=== PATIENT | male | born 1980 | race Hispanic/Latino ===

== ENCOUNTER 2017-07-03 15:06 | Emergency (ER) | payer SELFPAY ==
[~2017-07-03] VITALS: Ht 175.3 cm; Wt 95.3 kg
[2017-07-03 15:59] LABS: BASOPHILS % 0.5 % (0.0-1.0); EOSINOPHILS # (AUTO) 0.1 (0.0-0.4); EOSINOPHILS % 1.7 % (0.0-6.0); HEMATOCRIT 40.9 % (38.2-49.6); HEMOGLOBIN 14.3 g/dL (14.0-18.0); LYMPHOCYTES % 39.2 % (18.0-39.1); MEAN CORPUSCULAR HEMOGLOBIN 29.4 pg (28-32); MEAN CORPUSCULAR VOLUME 84.2 fL (81-99); MONOCYTES # (AUTO) 0.4 (0.2-0.8); MONOCYTES % 4.9 % (4.4-11.3); NEUTROPHILS # (AUTO) 4.1 (2.1-6.9); NEUTROPHILS % 53.1 % (38.7-80.0); PLATELET COUNT 212 x10e3/uL (140-360); RED BLOOD COUNT 4.86 x10e6/uL (4.3-5.7); RED CELL DISTRIBUTION WIDTH 12.8 % (11.7-14.4)
[2017-07-03 16:04] LABS: INR 0.91; PARTIAL THROMBOPLASTIN TIME 28.6 seconds (23.8-35.5); PROTHROMBIN TIME 12.7 seconds (11.9-14.5)
[2017-07-03 16:11] LABS: ALANINE AMINOTRANSFERASE 44 IU/L (0-55); ALBUMIN 3.9 g/dL (3.5-5.0); ALBUMIN/GLOBULIN RATIO 1.1 (0.8-2.0); ALKALINE PHOSPHATASE 95 IU/L (40-150); ANION GAP 15.6 mmol/L (8-16); BLOOD UREA NITROGEN 12 mg/dL (7-26); BUN/CREATININE RATIO 14 (6-25); CALCIUM 9.1 mg/dL (8.4-10.2); CARBON DIOXIDE 24 mmol/L (22-29); CHLORIDE 104 mmol/L (98-107); CREATINE KINASE 203 IU/L (30-200); CREATININE, SERUM 0.84 mg/dL (0.72-1.25); EST GLOMERULAR FILTRATION RATE > 60 ML/MIN (60-); GLUCOSE 152 mg/dL (74-118); POTASSIUM 3.6 mmol/L (3.5-5.1); SODIUM 140 mmol/L (136-145)
[2017-07-03 16:17] LABS: TROPONIN I < 0.001 ng/mL (0-0.300)
--- NOTE | 2017-07-03 16:47 | Diagnostic Imaging Report ---
PROCEDURE: CHEST SINGLE (PORTABLE) COMPARISON: None. INDICATIONS: chest pain x 3 days FINDINGS: Portable frontal image obtained at 1419 hrs. LUNGS: No evidence of mass or infiltrate. Pulmonary vascular markings are normal PLEURA: No effusions or pneumothorax. HEART \T\ MEDIASTINUM: The cardiomediastinal silhouette is normal. No hilar lymphadenopathy. BONES \T\ SOFT TISSUES: No focal osseous lesions. Soft tissues are unremarkable. CONCLUSION: No acute cardiopulmonary process. Dictated by: Anselmo Blount M.D. on 07/03/2017 at 16:56 Electronically approved by: Anselmo Blount M.D. on 07/03/2017 at 16:56
== END 2017-07-03 18:00 | disposition home or self-care (01) ==
LOC: ER 15:06
DX: R07.89 Other chest pain (principal); I10 Essential (primary) hypertension
CPT/HCPCS: 36415; 71010; 80053; 82550; 82553; 83880; 84484; 85025; 85610; 85730; 93005; 99283

== ENCOUNTER 2017-10-31 08:11 | Emergency (ER) | payer SELFPAY ==
[~2017-10-31] VITALS: Ht 175.3 cm; Wt 95.3 kg
[2017-10-31] MEDS ORDERED: INHALER (08:23)
[2017-10-31] MEDS ORDERED: LISINOPRIL10 MG PO (08:23)
[2017-10-31] MEDS ORDERED: PENICILLIN G BENZATHINE LA 1.2 MU TBX IM STA (08:28)
[2017-10-31] MEDS ORDERED: ACETAMINOPHEN 325 MG TAB PO ONE (08:30)
== END 2017-10-31 09:15 | disposition home or self-care (01) ==
LOC: ER 08:11
DX: R50.9 Fever, unspecified (principal); J02.0 Streptococcal pharyngitis
CPT/HCPCS: 96372; 99283; J0561

== ENCOUNTER 2018-01-16 22:15 | Emergency (ER) | payer SELFPAY ==
[~2018-01-16] VITALS: Ht 175.3 cm; Wt 95.3 kg
[~2018-01-16 22:15] MED LIST: INHALER; LISINOPRIL10 MG PO
[2018-01-16] MEDS ORDERED: SODIUM CHLORIDE 0.9% 1000ML 1,000 ML IV STA (22:24)
[2018-01-16 22:41] LABS: BASOPHILS # (AUTO) 0.1 (0.0-0.1); BASOPHILS % 0.5 % (0.0-1.0); EOSINOPHILS # (AUTO) 0.2 (0.0-0.4); EOSINOPHILS % 1.5 % (0.0-6.0); HEMATOCRIT 38.4 % (38.2-49.6); HEMOGLOBIN 13.6 g/dL (14.0-18.0); LYMPHOCYTES # (AUTO) 3.5 (1.0-3.2); LYMPHOCYTES % 33.3 % (18.0-39.1); MEAN CORPUSCULAR HEMOGLOBIN 29.8 pg (28-32); MEAN CORPUSCULAR HGB CONC 35.4 g/dL (31-35); MEAN CORPUSCULAR VOLUME 84.2 fL (81-99); MONOCYTES # (AUTO) 0.8 (0.2-0.8); MONOCYTES % 7.6 % (4.4-11.3); NEUTROPHILS % 56.8 % (38.7-80.0); PLATELET COUNT 217 x10e3/uL (140-360); RED BLOOD COUNT 4.56 x10e6/uL (4.3-5.7)
[2018-01-16 22:50] LABS: INR 0.98; PARTIAL THROMBOPLASTIN TIME 30.5 seconds (23.8-35.5); PROTHROMBIN TIME 12.2 seconds (11.9-14.5)
[2018-01-16 23:00] LABS: ALANINE AMINOTRANSFERASE 32 IU/L (0-55); ALBUMIN 3.9 g/dL (3.5-5.0); ALBUMIN/GLOBULIN RATIO 1.1 (0.8-2.0); ALKALINE PHOSPHATASE 122 IU/L (40-150); ANION GAP 14.6 mmol/L (8-16); BLOOD UREA NITROGEN 20 mg/dL (7-26); BUN/CREATININE RATIO 24 (6-25); CALCIUM 9.2 mg/dL (8.4-10.2); CARBON DIOXIDE 22 mmol/L (22-29); CHLORIDE 104 mmol/L (98-107); CREATININE, SERUM 0.84 mg/dL (0.72-1.25); EST GLOMERULAR FILTRATION RATE > 60 ML/MIN (60-); GLUCOSE 147 mg/dL (74-118); POTASSIUM 3.6 mmol/L (3.5-5.1); SODIUM 137 mmol/L (136-145)
[2018-01-16 23:07] LABS: CREATINE KINASE MB 1.6 ng/mL (0-5.0)
== END 2018-01-16 23:57 | disposition home or self-care (01) ==
LOC: ER 22:15
DX: M25.562 Pain in left knee (principal); L03.116 Cellulitis of left lower limb; R22.1 Localized swelling, mass and lump, neck
CPT/HCPCS: 36415; 80053; 82550; 82553; 83735; 84484; 85025; 85610; 85730; 93005; 93971; 99283; J7030

== ENCOUNTER 2018-03-30 17:54 | Emergency (ER) | payer SELFPAY | END 2018-03-30 18:09 | disposition short-term general hospital (02) | LOC: ER 17:54 | DX: R51 Headache (principal) ==

== ENCOUNTER 2018-04-02 13:03 | Emergency (ER) | payer SELFPAY ==
[~2018-04-02] VITALS: Ht 175.3 cm; Wt 95.3 kg
[2018-04-02 13:23] VITALS: BP 144/90
== END 2018-04-02 13:40 | disposition home or self-care (01) ==
LOC: ER 13:03
DX: R51 Headache (principal); J01.00 Acute maxillary sinusitis, unspecified; J01.30 Acute sphenoidal sinusitis, unspecified
CPT/HCPCS: 99282

== ENCOUNTER 2018-04-11 06:35 | Emergency (ER) | payer SELFPAY ==
[~2018-04-11] VITALS: Ht 175.3 cm; Wt 95.3 kg
== END 2018-04-11 07:14 | disposition short-term general hospital (02) ==
LOC: ER 06:35
DX: R30.0 Dysuria (principal)

== ENCOUNTER 2019-01-05 10:45 | Emergency (ER) | payer SELFPAY ==
[~2019-01-05] VITALS: Ht 175.3 cm; Wt 95.3 kg
--- NOTE | 2019-01-05 12:17 | Diagnostic Imaging Report ---
EXAMINATION: CXR 2 VIEW - HOPD INDICATION: Chest pain COMPARISON: None FINDINGS: TUBES and LINES: None. LUNGS: The lung volumes are normal. No focal consolidation or pulmonary edema. PLEURA: No pleural effusion or pneumothorax. HEART AND MEDIASTINUM: The cardiomediastinal silhouette is normal in size and contour. BONES AND SOFT TISSUES: No acute fracture or dislocation. UPPER ABDOMEN: No free air under the diaphragm. IMPRESSION: No focal pneumonia or pulmonary edema. Signed by: Jessica Garcia MD on 01/05/2019 12:14 PM
== END 2019-01-05 12:48 | disposition home or self-care (01) ==
LOC: FSED 10:45
DX: K21.9 Gastro-esophageal reflux disease without esophagitis (principal); F41.1 Generalized anxiety disorder; F10.10 Alcohol abuse, uncomplicated; I45.10 Unspecified right bundle-branch block
CPT/HCPCS: 71046; 80053; 81003; 82553; 84484; 85025; 93005; 99284

== ENCOUNTER 2020-04-23 20:58 | Emergency (ER) | payer SELFPAY ==
[~2020-04-23] VITALS: Ht 175.3 cm; Wt 97.5 kg
[2020-04-23] MEDS ORDERED: ONDANSETRON HCL INJ 2MG/ML 2ML 2 MG/ML VIAL IV STA (21:01)
[2020-04-23] MEDS ORDERED: FAMOTIDINE 20 MG/2 ML VIAL IV ONE ×2 (21:15→21:32)
--- NOTE | 2020-04-23 21:17 | Emergency Department Note ---
History of Present Illnes History of Present Illness History of Present Illness This is a 39 year old male c/o mid chest tightness for one week but it got worse for 2 hours and he is worried for having PA . Arrival Mode: Car Brand Advisor Required: No Onset (how long ago): week(s) Radiation: Reports flank Severity: moderate Onset quality: gradual Duration (how long): hour(s) Timing of current episode: intermittent Progression: waxing and waning Relieving factors: none Exacerbating factors: none Associated symptoms: Reports denies other symptoms Treatments prior to arrival: none Past Medical/Family History Physician Review I have reviewed the patient's past medical and family history. Any updates have been documented here. 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 Social History Smoking Cessation: Never Smoker Counseling Performed: No Alcohol Use: Occasional Any Illegal Drug Use: No TB Exposure/Symptoms: No Physically hurt or threatened: No Family History Family history of heart diseas: No Other Last Tetanus: UTD Is patient up to date on immun: No Review of Systems Review of Systems Constitutional: Reports no symptoms EENTM: Reports no symptoms Cardiovascular: Reports chest pain Respiratory: Reports no symptoms Gastrointestinal: Reports as per HPI, Reports nausea Genitourinary: Reports no symptoms Musculoskeletal: Reports no symptoms Integumentary: Reports no symptoms Neurological: Reports no symptoms Psychological: Reports no symptoms Endocrine: Reports no symptoms Hematological/Lymphatic: Reports no symptoms Physical Exam Related Data Allergies: Coded Allergies: No Known Allergies (Unverified , 10/31/17) Vital signs reviewed: Yes Physical Exam CONSTITUTIONAL Constitutional: Present well-developed, Present well-nourished HENT HENT: Present normocephalic, Present atraumatic, Present oropharynx clear/moist, Present nose normal HENT L/R: Present left ext ear normal, Present right ext ear normal EYES Eyes: Reports PERRL, Reports conjunctivae normal NECK Neck: Present ROM normal PULMONARY Pulmonary: Present effort normal, Present breath sounds normal CARDIOVASCULAR Cardiovascular: Present regular rhythm, Present heart sounds normal, Present capillary refill normal, Present normal rate GASTROINTESTINAL Abdominal: Present soft, Present nontender, Present bowel sounds normal GENITOURINARY Genitourinary: Present exam deferred SKIN Skin: Present warm, Present dry MUSCULOSKELETAL Musculoskeletal: Present ROM normal NEUROLOGICAL Neurological: Present alert, Present oriented x 3, Present no gross motor or sensory deficits PSYCHOLOGICAL Psychological: Present mood/affect normal, Present judgement normal Results Laboratory Lab results reviewed: Yes Imaging Imaging results reviewed: Yes Procedures 12 Lead ECG Interpretation ECG Interpretation : ECG: ECG 1 Brand Advisor: Interpreted by ED physician Date: Apr 23, 2020 Time: 20:59 Prior ECG tracings: reviewed Rhythm: sinus rhythm Rate: normal BPM: 77 QRS axis: normal ST segments normal: Yes T waves normal: Yes Other findings: LVH Clinical Impression: abnormal ECG Assessment & Plan Medical Decision Making MDM GI vs cardiac vs PE Reassessment Reassessment time: 22:00 Reassessment no pain feels much better after GI cocktail Assessment & Plan Final Impression: (1) Chest pain, non-cardiac (2) GERD with esophagitis Depart Disposition: HOME, SELF-FCI Meds Reported Medications [Inhaler] No Conflict Check 10/31/17 Lisinopril (LISINOPRIL) 10 Mg Tablet, 5 MG PO DAILY, #30 TAB 10/31/17 Medications in the ED Famotidine 20 mg ONCE ONCE IV ; Start 04/23/20 at 21:15; Stop 04/23/20 at 21:16; Status UNV Ondansetron HCl 8 mg NOW STAT IV ; Start 04/23/20 at 21:01; Stop 04/23/20 at 21:02; Status UNV Physician Attestation Provider Attestation low risk for CAD, likely GI related pain. GENA GONCALVES MD Apr 23, 2020 21:17
[2020-04-23] MEDS ORDERED: DONNATAL/LIDOCAINE/MAALOX 30 ML SUSP PO ONE (21:30)
[2020-04-23] MEDS ORDERED: MAGNESIUM/ALUMINUM/SIMETHICONE 30 ML UDC ONE (21:32)
[2020-04-23] MEDS ORDERED: BELLADONNA ALK/PHENOBARBITAL 5 ML UDC ONE (21:32)
[2020-04-23] MEDS ORDERED: LIDOCAINE VISC 2% SOLN 15 ML UDC ONE (21:32)
[2020-04-23] MEDS ORDERED: ONDANSETRON HCL INJ 2MG/ML 2ML 2 MG/ML VIAL ONE (21:32)
--- NOTE | 2020-04-23 22:29 | Diagnostic Imaging Report ---
EXAMINATION: CXR 2 VIEW - HOPD INDICATION: Chest pain COMPARISON: Chest x-ray 01/05/2019 FINDINGS: TUBES and LINES: None. LUNGS: Normal lung volumes. Lungs are clear. No consolidations. PLEURA: No pleural effusion or pneumothorax. HEART AND MEDIASTINUM: The cardiomediastinal silhouette is unremarkable. BONES AND SOFT TISSUES: No acute osseous lesion. Soft tissues are unremarkable. UPPER ABDOMEN: No free air under the diaphragm. IMPRESSION: No acute thoracic radiographic abnormality. Signed by: Abiodun Mcgarry DO on 04/23/2020 10:25 PM
--- OUTSIDE RECORDS SUMMARY | 2020-04-24 09:30 | XMS REPORT | Continuity of Care Document ---
Author Author [facility] t Organization [facility] Address 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 Role Phone NO, PCP PCP Unavailable Ariel GONCALVES Attphys Unavailable KENDRICK ARANDA Attphys Unavailable Carol AVERY Attphys Unavailable Payers Payer Name Policy Type Policy Number Effective Date Expiration Date S ource Self Pay NA [facility] Problems Condition Name Condition Details Condition Category Status Onset Date Resolution Date Last Treatment Date Treating Clinician Comments Source Non-cardiac chest pain Problem Active [facility] Gastroesophageal reflux disease with esophagitis Problem Active [facility] Allergies, Adverse Reactions, Alerts Allergy Name Allergy Type Status Severity Reaction(s) Onset Date Inacti ve Date Treating Clinician Comments Source No Known Allergies DA Active U 2018-03-30 00:00:00 [facility] No Known Allergies DA Active U 2016-07-28 00:00:00 [facility] Social History Social Habit Start Date Stop Date Quantity Comments Source Sex Assigned At 1980 00:00:00 1980 00:00:00 Male [facility] Medications Ordered Medication Name Filled Medication Name Start Date Stop Da te Current Medication? Ordering Clinician Indication Dosage Frequency Signature (SIG) Comments Components Source Inhaler Inhaler Yes [facility] Lisinopril Lisinopril Yes 5 Daily [facility] Vital Signs Vital Name Observation Time Observation Value Comments Source Weight 2020-04-23 21:00:00 215 [lb_av] [facility] BMI (Body Mass Index) 2020-04-23 21:00:00 31.7 kg/m2 [facility] Procedures This patient has no known procedures. Plan of Care Planned Activity Planned Date Details Comments Source Instructions Chest Pain - Noncardiac [facility] Encounters Start Date/Time End Date/Time Encounter Type Admission Type Attendi [facility] Care Department Encounter ID Source 2020-04-23 21:02:00 2020-04-23 22:07:00 Departed Emergency Room GENA GONCALVES [facility] [id number] [facility] 2019-01-05 10:45:00 2019-01-05 12:48:00 Departed Emergency Room 1 KENDRICK ARANDA [facility] [id number] [facility] 2018-04-11 06:35:00 2018-04-11 07:14:00 Departed Emergency Room [facility] [id number] [facility] 2018-04-02 13:03:00 2018-04-02 13:40:00 Departed Emergency Room [facility] [id number] [facility] 2018-03-30 17:54:00 2018-03-30 18:09:00 Departed Emergency Room [facility] [id number] [facility] 2018-01-16 22:15:00 2018-01-16 23:57:00 Departed Emergency Room [facility] [id number] [facility] 2017-10-31 08:11:00 2017-10-31 09:15:00 Departed Emergency Room [facility] [id number] [facility] 2017-07-03 15:06:00 2017-07-03 18:00:00 Departed Emergency Room ER GENA WINDY [facility] [id number] [facility] Results Test Description Test Time Test Comments Results Result Comments Source CXR 2 VIEW - HOPD 2020-04-23 22:25:00 [facility] 1980 Sex: [place] [address] Patient Name: FLORIN GUERRERO MR #: [id number] : 1980 Age/Sex: 39/M Req #: [id number] [facility] Physician: Ordered by: GENA GONCALVES MD Report #: [id number] Location: [facility] Room/Bed: Procedure: [id number] HOPD/CXR 2 VIEW - HOPD Exam Date: 04/23/20 Exam Time: 2124 REPORT STATUS: Signed EXAMINATION: CXR 2 VIEW - HOPD INDICATION: Chest pain COMPARISON: Chest x-ray 01/05/2019 FINDINGS: TUBES and LINES: None. LUNGS: Normal lung volumes. Lungs are clear. No consolidations. PLEURA: No pleural effusion or pneumothorax. HEART AND MEDIASTINUM: The cardiomediastinal silhouette is unremarkable. BONES AND SOFT TISSUES: No acute osseous lesion. Soft tissues are unremarkable. UPPER ABDOMEN: No free air under the diaphragm. IMPRESSION: No acute thoracic radiographic abnormality. Signed by: Abiodun Mcgarry DO on 04/23/2020 10:25 PM Dictated By: ABIODUN MCGARRY DO 24 Transcribed By: SUZIE on 04/23/202224 COPY TO: GENA GONCALVES MD CXR 2 VIEW - HOPD 2019-01-05 12:13:00 [place] [address] Patient Name: FLORIN GUERRERO MR #: [id number] : 1980 Age/Sex: 38/M Req #: [id number] Adm Physician: Ordered by: KENDRICK ARANDA MD Report #: [id number] Location: [facility] Room/Bed: Procedure: [id number] HOPD/CXR 2 VIEW - HOPD Exam Date: 01/05/19 Exam Time: 1124 REPORT STATUS: Signed EXAMINATION: CXR 2 VIEW - HOPD INDICATION: Chest pain COMPARISON: None FINDINGS: TUBES and LINES: None. LUNGS: The lung volumes are normal. No focal consolidation or pulmonary edema. PLEURA: No pleural effusion or pneumothorax. HEART AND MEDIASTINUM: The cardiomediastinal silhouette is normal in size and contour. BONES AND SOFT TISSUES: No acute fracture or dislocation. UPPER ABDOMEN: No free air under the diaphragm. IMPRESSION: No focal pneumonia or pulmonary edema. Signed by: Luisito Salgado MD on 01/05/2019 12:14 PM Dictated By: LUISITO SALGADO MD 13 Transcribed By: SUZIE on 01/05/19 1214 COPY TO: KENDRICK ARANDA MD Creatine Kinase MB 2018-01-16 23:09:00 Test Item Creatine Kinase MB (test code = 39893-4) 1.60 0-5.0 [place] [id number] 23:09:00* Test Item Value Reference Range Interpretation Comments Troponin I (test code = WLF8781) 0.050 0-0.300 [facility] [id number] 23:09:00* Test Item Value Reference Range Interpretation Comments Creatine Kinase MB (test code = 05558-2) 1.60 0-5.0 [place] [id number] 23:09:00* Test Item Value Reference Range Interpretation Comments Troponin I (test code = FPH1566) 0.050 0-0.300 [facility] Kinase [id number] 23:09:00* Test Item Value Reference Range Interpretation Comments Creatine Kinase MB (test code = 22918-2) 1.60 0-5.0 [place] [id number] 23:09:00* Test Item Value Reference Range Interpretation Comments Troponin I (test code = ZMW0049) 0.050 0-0.300 [facility] Atxxn0463-34-60 23:01:00* Test Item Value Reference Range Interpretation Comments Sodium Level (test code = 2951-2) 137 136-145 [facility]anoPotassium Gxtgo5492-11-29 23:01:00* Test Item Value Reference Range Interpretation Comments Potassium Level (test code = 2823-3) 3.6 3.5-5.1 [facility]anoChloride Nanuk5054-73-06 23:01:00* Test Item Value Reference Range Interpretation Comments Chloride Level (test code = 2075-0) 104 98-107 [facility]anoCarbon Dioxide Norab1352-90-98 23:01:00* Test Item Value Reference Range Interpretation Comments Carbon Dioxide Level (test code = 2028-9) 22 22-29 [facility]anoAnion Fvw5553-73-72 23:01:00* Test Item Value Reference Range Interpretation Comments Anion Gap (test code = 70154-5) 14.6 8-16 [facility]anoBlood Urea Ulvqhcrd9173-66-86 23:01:00* Test Item Value Reference Range Interpretation Comments Blood Urea Nitrogen (test code = 3094-0) 20 7-26 [facility]anoCreatinine2018-07-14 23:01:00* Test Item Value Reference Range Interpretation Comments Creatinine (test code = 2160-0) 0.84 0.72-1.25 [facility]anoBUN/Creatinine Byvac6053-66-63 23:01:00* Test Item Value Reference Range Interpretation Comments BUN/Creatinine Ratio (test code = 3097-3) 24 6- [facility]anoEstimat Glomerular Filtration Rate 2018-01-16 23:01:00* Test Item Value Reference Range Interpretation Comments Estimat Glomerular Filtration Rate (test code = 39299-2) 60- >60 Ranges were taken from the National Kidney Disease Education Program and the [facility] literature.Reference ranges:60 or greater: Vleorr24-99 ( for 3 consecutive months): Chronic kidney disease 15 or less: Kidney failureBaylor Scott & White Medical Center – PlanoGlucose Ldbxk5815-44-96 23:01:00* Test Item Value Reference Range Interpretation Comments Glucose Level (test code = CVL5956) 147 74-118 H [facility]anoCalcium Ljakc6422-63-56 23:01:00* Test Item Value Reference Range Interpretation Comments Calcium Level (test code = 35482-4) 9.2 8.4-10.2 [facility]anoMagnesium Hyqmi6981-89-90 23:01:00* Test Item Value Reference Range Interpretation Comments Magnesium Level (test code = 49117-8) 2.0 1.3-2.1 [facility] PlanoTotal Hctbcxydj3601-91-30 23:01:00* Test Item Value Reference Range Interpretation Comments Total Bilirubin (test code = 1975-2) 0.5 0.2-1.2 [facility] PlanoAspartate Amino Transf (AST/SGOT) 2018-01-16 23:01:00* Test Item Value Reference Range Interpretation Comments Aspartate Amino Transf (AST/SGOT) (test code = Aspartate Amino Transf (AST/SGOT)) 19 5-34 [facility]anoAlanine Aminotransferase (ALT/SGPT) 2018-01-16 23:01:00* Test Item Value Reference Range Interpretation Comments Alanine Aminotransferase (ALT/SGPT) (test code = 1742-6) 32 0-55 [facility] PlanoTotal Joaijna0570-31-48 23:01:00* Test Item Value Reference Range Interpretation Comments Total Protein (test code = 2885-2) 7.5 6.5-8.1 [facility] PlanoAlbumin2018-07-14 23:01:00* Test Item Value Reference Range Interpretation Comments Albumin (test code = 1751-7) 3.9 3.5-5.0 [facility]anoGlobulin2018-07-14 23:01:00* Test Item Value Reference Range Interpretation Comments Globulin (test code = 39308-3) 3.6 2.3-3.5 H [facility] PlanoAlbumin/Globulin Edqhe2660-26-59 23:01:00 * Test Item Value Reference Range Interpretation Comments Albumin/Globulin Ratio (test code = 1759-0) 1.1 0.8-2.0 [facility] PlanoAlkaline Qhwqwcztsvv4131-04-45 23:01:00* Test Item Value Reference Range Interpretation Comments Alkaline Phosphatase (test code = 6768-6) 122 40-150 [facility] PlanoCreatine Bbundq2433-57-25 23:01:00* Test Item Value Reference Range Interpretation Comments Creatine Kinase (test code = 2157-6) 217 30-200 [facility] Zihmb0482-50-29 23:01:00* Test Item Value Reference Range Interpretation Comments Sodium Level (test code = 2951-2) 137 136-145 [facility]anoPotassium Mfyec4467-57-96 23:01:00* Test Item Value Reference Range Interpretation Comments Potassium Level (test code = 2823-3) 3.6 3.5-5.1 [facility]anoChloride Oxzji5666-86-82 23:01:00* Test Item Value Reference Range Interpretation Comments Chloride Level (test code = 2075-0) 104 98-107 [facility] PlanoCarbon Dioxide Adcep1011-82-03 23:01:00* Test Item Value Reference Range Interpretation Comments Carbon Dioxide Level (test code = 2028-9) 22 22-29 [facility] PlanoAnion Afd7522-36-20 23:01:00* Test Item Value Reference Range Interpretation Comments Anion Gap (test code = 99224-8) 14.6 8-16 [facility] PlanoBlood Urea Shaakciy3205-30-26 23:01:00* Test Item Value Reference Range Interpretation Comments Blood Urea Nitrogen (test code = 3094-0) 20 7-26 [facility] PlanoCreatinine2018-07-14 23:01:00* Test Item Value Reference Range Interpretation Comments Creatinine (test code = 2160-0) 0.84 0.72-1.25 [facility]anoBUN/Creatinine Lykrm6260-99-63 23:01:00* Test Item Value Reference Range Interpretation Comments BUN/Creatinine Ratio (test code = 3097-3) 24 6-25 [facility] PlanoEstimat Glomerular Filtration Rate 2018-01-16 23:01:00* Test Item Value Reference Range Interpretation Comments Estimat Glomerular Filtration Rate (test code = 697823523) 60- >60 Ranges were taken from the National Kidney Disease Education Program and the [facility] literature.Reference ranges:60 or greater: Ifcmsa31-26 ( for 3 consecutive months): Chronic kidney disease 15 or less: Kidney failureBaylor Scott & White Medical Center – PlanoGlucose Muylx3731-44-06 23:01:00* Test Item Value Reference Range Interpretation Comments Glucose Level (test code = ZPV8943) 147 74-118 H [facility] PlanoCalcium Gpdpj8658-11-65 23:01:00* Test Item Value Reference Range Interpretation Comments Calcium Level (test code = 64316-1) 9.2 8.4-10.2 [facility] PlanoMagnesium Wthei5336-08-96 23:01:00* Test Item Value Reference Range Interpretation Comments Magnesium Level (test code = 11635-9) 2.0 1.3-2.1 [facility] PlanoTotal Vkwwukrig7097-68-08 23:01:00* Test Item Value Reference Range Interpretation Comments Total Bilirubin (test code = 1975-2) 0.5 0.2-1.2 [facility] PlanoAspartate Amino Transf (AST/SGOT) 2018-01-16 23:01:00* Test Item Value Reference Range Interpretation Comments Aspartate Amino Transf (AST/SGOT) (test code = Aspartate Amino Transf (AST/SGOT)) 19 5-34 [facility] PlanoAlanine Aminotransferase (ALT/SGPT) 2018-01-16 23:01:00* Test Item Value Reference Range Interpretation Comments Alanine Aminotransferase (ALT/SGPT) (test code = 1742-6) 32 0-55 [facility] PlanoTotal Hkmlzcv3724-72-52 23:01:00* Test Item Value Reference Range Interpretation Comments Total Protein (test code = 2885-2) 7.5 6.5-8.1 [facility] PlanoAlbumin2018-07-14 23:01:00* Test Item Value Reference Range Interpretation Comments Albumin (test code = 1751-7) 3.9 3.5-5.0 [facility] PlanoGlobulin2018-07-14 23:01:00* Test Item Value Reference Range Interpretation Comments Globulin (test code = 90215-5) 3.6 2.3-3.5 H [facility] PlanoAlbumin/Globulin Mtljk0427-25-20 23:01:00 * Test Item Value Reference Range Interpretation Comments Albumin/Globulin Ratio (test code = 1759-0) 1.1 0.8-2.0 [facility] PlanoAlkaline Awvuhhasokp6198-84-40 23:01:00* Test Item Value Reference Range Interpretation Comments Alkaline Phosphatase (test code = 6768-6) 122 40-150 [facility] PlanoCreatine Cybifq8853-45-66 23:01:00* Test Item Value Reference Range Interpretation Comments Creatine Kinase (test code = 2157-6) 217 30-200 [facility] Centerodium Echsn5693-92-42 23:01:00* Test Item Value Reference Range Interpretation Comments Sodium Level (test code = 2951-2) 137 136-145 [facility] PlanoPotassium Qblmp3509-21-82 23:01:00* Test Item Value Reference Range Interpretation Comments Potassium Level (test code = 2823-3) 3.6 3.5-5.1 [facility] PlanoChloride Kpota8407-16-57 23:01:00* Test Item Value Reference Range Interpretation Comments Chloride Level (test code = 2075-0) 104 98-107 [facility] PlanoCarbon Dioxide Ihqxr5617-91-71 23:01:00* Test Item Value Reference Range Interpretation Comments Carbon Dioxide Level (test code = 2028-9) 22 22-29 [facility] PlanoAnion Uvp0775-60-19 23:01:00* Test Item Value Reference Range Interpretation Comments Anion Gap (test code = 38307-8) 14.6 8-16 [facility] PlanoBlood Urea Gipqpqpg2327-74-56 23:01:00* Test Item Value Reference Range Interpretation Comments Blood Urea Nitrogen (test code = 3094-0) 20 7-26 [facility] PlanoCreatinine2018-07-14 23:01:00* Test Item Value Reference Range Interpretation Comments Creatinine (test code = 2160-0) 0.84 0.72-1.25 [facility] PlanoBUN/Creatinine Wiufk7555-94-30 23:01:00* Test Item Value Reference Range Interpretation Comments BUN/Creatinine Ratio (test code = 3097-3) 24 6-25 [facility] PlanoEstimat Glomerular Filtration Rate 2018-01-16 23:01:00* Test Item Value Reference Range Interpretation Comments Estimat Glomerular Filtration Rate (test code = 192248084) 60- >60 Ranges were taken from the National Kidney Disease Education Program and the [facility] literature.Reference ranges:60 or greater: Mhshcn55-98 ( for 3 consecutive months): Chronic kidney disease 15 or less: Kidney failureBaylor Scott & White Medical Center – PlanoGlucose Gwqml8190-56-02 23:01:00* Test Item Value Reference Range Interpretation Comments Glucose Level (test code = MWT5513) 147 74-118 H [facility] PlanoCalcium Cztym1493-40-28 23:01:00* Test Item Value Reference Range Interpretation Comments Calcium Level (test code = 57488-8) 9.2 8.4-10.2 [facility] PlanoMagnesium Zuxzz4593-33-62 23:01:00* Test Item Value Reference Range Interpretation Comments Magnesium Level (test code = 97657-6) 2.0 1.3-2.1 [facility] PlanoTotal Vugtzatgw6403-37-01 23:01:00* Test Item Value Reference Range Interpretation Comments Total Bilirubin (test code = 1975-2) 0.5 0.2-1.2 [facility] PlanoAspartate Amino Transf (AST/SGOT) 2018-01-16 23:01:00* Test Item Value Reference Range Interpretation Comments Aspartate Amino Transf (AST/SGOT) (test code = Aspartate Amino Transf (AST/SGOT)) 19 5-34 [facility] PlanoAlanine Aminotransferase (ALT/SGPT) 2018-01-16 23:01:00* Test Item Value Reference Range Interpretation Comments Alanine Aminotransferase (ALT/SGPT) (test code = 1742-6) 32 0-55 [facility] PlanoTotal Uacxezn3120-39-39 23:01:00* Test Item Value Reference Range Interpretation Comments Total Protein (test code = 2885-2) 7.5 6.5-8.1 [facility] PlanoAlbumin2018-07-14 23:01:00* Test Item Value Reference Range Interpretation Comments Albumin (test code = 1751-7) 3.9 3.5-5.0 [facility] PlanoGlobulin2018-07-14 23:01:00* Test Item Value Reference Range Interpretation Comments Globulin (test code = 44205-0) 3.6 2.3-3.5 H [facility] PlanoAlbumin/Globulin Feuya5282-49-52 23:01:00 * Test Item Value Reference Range Interpretation Comments Albumin/Globulin Ratio (test code = 1759-0) 1.1 0.8-2.0 [facility] PlanoAlkaline Uitwfsugqpr3618-93-22 23:01:00* Test Item Value Reference Range Interpretation Comments Alkaline Phosphatase (test code = 6768-6) 122 40-150 [facility] PlanoCreatine Bcdzaw5979-32-60 23:01:00* Test Item Value Reference Range Interpretation Comments Creatine Kinase (test code = 2157-6) 217 30-200 H [facility] PlanoProthrombin Uehn8954-73-90 22:51:00* Test Item Value Reference Range Interpretation Comments Prothrombin Time (test code = 5902-2) 12.2 11.9-14.5 [facility] PlanoProthromb Time International Ratio 2018-01-16 22:51:00* Test Item Value Reference Range Interpretation Comments Prothromb Time International Ratio (test code = 6301-6) 0.98 Oral Anticoagulant Therapy INR Values:1. Low Intensity Therapy 1.5 - 2.02 . Moderate Intensity Therapy 2.0 - 3.03. High Intensity Therapy(1) 2.5 - 3. 54. High Intensity Therapy(2) 3.0 - 4.05. Panic Value INR > 5.0 [facility] PlanoActivated Partial Thromboplast Time 2018-01-16 22:51:00* Test Item Value Reference Range Interpretation Comments Activated Partial Thromboplast Time (test code = 12998-4) 30.5 23.8-35.5 [facility] PlanoProthrombin Cmyi9981-68-69 22:51:00* Test Item Value Reference Range Interpretation Comments Prothrombin Time (test code = 5902-2) 12.2 11.9-14.5 [facility] PlanoProthromb Time International Ratio 2018-01-16 22:51:00* Test Item Value Reference Range Interpretation Comments Prothromb Time International Ratio (test code = 6301-6) 0.98 Oral Anticoagulant Therapy INR Values:1. Low Intensity Therapy 1.5 - 2.02 . Moderate Intensity Therapy 2.0 - 3.03. High Intensity Therapy(1) 2.5 - 3. 54. High Intensity Therapy(2) 3.0 - 4.05. Panic Value INR > 5.0 [facility] PlanoActivated Partial Thromboplast Time 2018-01-16 22:51:00* Test Item Value Reference Range Interpretation Comments Activated Partial Thromboplast Time (test code = 30680-7) 30.5 23.8-35.5 [facility] PlanoProthrombin Niym6582-58-90 22:51:00* Test Item Value Reference Range Interpretation Comments Prothrombin Time (test code = 5902-2) 12.2 11.9-14.5 [facility] PlanoProthromb Time International Ratio 2018-01-16 22:51:00* Test Item Value Reference Range Interpretation Comments Prothromb Time International Ratio (test code = 6301-6) 0.98 Oral Anticoagulant Therapy INR Values:1. Low Intensity Therapy 1.5 - 2.02 . Moderate Intensity Therapy 2.0 - 3.03. High Intensity Therapy(1) 2.5 - 3. 54. High Intensity Therapy(2) 3.0 - 4.05. Panic Value INR > 5.0 [facility] PlanoActivated Partial Thromboplast Time 2018-01-16 22:51:00* Test Item Value Reference Range Interpretation Comments Activated Partial Thromboplast Time (test code = 68479-5) 30.5 23.8-35.5 [facility] PlanoWhite Blood Bosej9637-51-29 22:43:00* Test Item Value Reference Range Interpretation Comments White Blood Count (test code = 6690-2) 10.56 4.8-10.8 [facility] PlanoRed Blood Tcdlv7112-92-82 22:43:00* Test Item Value Reference Range Interpretation Comments Red Blood Count (test code = 789-8) 4.56 4.3-5.7 [facility] PlanoHemoglobin2018-07-14 22:43:00* Test Item Value Reference Range Interpretation Comments Hemoglobin (test code = 92972-0) 13.6 14.0-18.0 L [facility] PlanoHematocrit2018-07-14 22:43:00* Test Item Value Reference Range Interpretation Comments Hematocrit (test code = 4544-3) 38.4 38.2-49.6 [facility] PlanoMean Corpuscular Ukeexf4340-47-42 22:43:00* Test Item Value Reference Range Interpretation Comments Mean Corpuscular Volume (test code = 787-2) 84.2 81-99 [facility] PlanoMean Corpuscular Zileiuknee3589-90-42 22:43:00* Test Item Value Reference Range Interpretation Comments Mean Corpuscular Hemoglobin (test code = 785-6) 29.8 28-32 [facility] Concent 2018-01-16 22:43:00* Test Item Value Reference Range Interpretation Comments Mean Corpuscular Hemoglobin Concent (test code = 786-4) 35.4 31-35 H [facility] PlanoRed Cell Distribution Xkesz2175-85-00 22:43:00* Test Item Value Reference Range Interpretation Comments Red Cell Distribution Width (test code = 08319-6) 13.0 11.7 -14.4 [facility] PlanoPlatelet Kinao4789-79-61 22:43:00* Test Item Value Reference Range Interpretation Comments Platelet Count (test code = 777-3) 217 140-360 [facility] PlanoNeutrophils (%) (Auto)2018-01-16 22:43:00 * Test Item Value Reference Range Interpretation Comments Neutrophils (%) (Auto) (test code = 23250-8) 56.8 38.7-80.0 [facility] PlanoLymphocytes (%) (Auto)2018-01-16 22:43:00 * Test Item Value Reference Range Interpretation Comments Lymphocytes (%) (Auto) (test code = 736-9) 33.3 18.0-39.1 [facility] [facility]Monocytes [facility] (Auto)2018-01-16 22:43:00* Test Item Value Reference Range Interpretation Comments Monocytes (%) (Auto) (test code = 5905-5) 7.6 4.4-11.3 [facility]osin[facility] (Auto)2018-01-16 22:43:00 * Test Item Value Reference Range Interpretation Comments Eosinophils (%) (Auto) (test code = 713-8) 1.5 0.0-6.0 [facility]Basophils (%) (Auto)2018-01-16 22:43:00* Test Item Value Reference Range Interpretation Comments Basophils (%) (Auto) (test code = 706-2) 0.5 0.0-1.0 [facility]IM GRANULOCYTES %2018-01-16 22:43:00* Test Item Value Reference Range Interpretation Comments IM GRANULOCYTES % (test code = IM GRANULOCYTES %) 0.3 0.0- 1.0 [facility]anoNeutrophils # (Auto)2018-01-16 22:43:00* Test Item Value Reference Range Interpretation Comments Neutrophils # (Auto) (test code = 751-8) 6.0 2.1-6.9 [facility]anoLymphocytes # (Auto)2018-01-16 22:43:00* Test Item Value Reference Range Interpretation Comments Lymphocytes # (Auto) (test code = 06755-0) 3.5 1.0-3.2 H [facility]Monocytes # (Auto)2018-01-16 22:43:00* Test Item Value Reference Range Interpretation Comments Monocytes # (Auto) (test code = 742-7) 0.8 0.2-0.8 [facility]Eosinophils # (Auto)2018-01-16 22:43:00* Test Item Value Reference Range Interpretation Comments Eosinophils # (Auto) (test code = 711-2) 0.2 0.0-0.4 [facility] [place]Basophils # (Auto)2018-01-16 22:43:00* Test Item Value Reference Range Interpretation Comments Basophils # (Auto) (test code = 704-7) 0.1 0.0-0.[address] [facility] Granulocyte (auto 2018-01-16 22:43:00* Test Item Value Reference Range Interpretation Comments Absolute Immature Granulocyte (auto (sandra t code = Absolute Immature Granulocyte (auto) 0.03 0-0.1 [facility] [place]anoWhite Blood Mjrcw8425-71-38 22:43:00* Test Item Value Reference Range Interpretation Comments White Blood Count (test code = 6690-2) 10.56 4.8-10.8 [facility] [place]anoRed Blood Oducv8919-33-67 22:43:00* Test Item Value Reference Range Interpretation Comments Red Blood Count (test code = 789-8) 4.56 4.3-5.7 [facility]anoHemoglobin2018-07-14 22:43:00* Test Item Value Reference Range Interpretation Comments Hemoglobin (test code = 23005-9) 13.6 14.0-18.0 L [facility] [place]anoHematocrit2018-07-14 22:43:00* Test Item Value Reference Range Interpretation Comments Hematocrit (test code = 4544-3) 38.4 38.2-49.6 [facility] [place]anoMean Corpuscular Eukjri7660-72-56 22:43:00* Test Item Value Reference Range Interpretation Comments Mean Corpuscular Volume (test code = 787-2) 84.2 81-99 [facility] [place]Mean Corpuscular Guldjwltfc7771-47-32 22:43:00* Test Item Value Reference Range Interpretation Comments Mean Corpuscular Hemoglobin (test code = 785-6) 29.8 28-32 [facility]anoMean Corpuscular Hemoglobin Concent 2018-01-16 22:43:00* Test Item Value Reference Range Interpretation Comments Mean Corpuscular Hemoglobin Concent (test code = 786-4) 35.4 31-35 H [facility] [place]anoRed Cell Distribution Pydxa6161-20-33 22:43:00* Test Item Value Reference Range Interpretation Comments Red Cell Distribution Width (test code = 14706-4) 13.0 11.7 -14.4 [facility]anoPlatelet Uwkgn5218-67-80 22:43:00* Test Item Value Reference Range Interpretation Comments Platelet Count (test code = 777-3) 217 140-360 [facility]anoNeutrophils (%) (Auto)2018-01-16 22:43:00 * Test Item Value Reference Range Interpretation Comments Neutrophils (%) (Auto) (test code = 21712-4) 56.8 38.7-80.0 [facility]anoLymphocytes (%) (Auto)2018-01-16 22:43:00 * Test Item Value Reference Range Interpretation Comments Lymphocytes (%) (Auto) (test code = 736-9) 33.3 18.0-39.1 [facility]anoMonocytes (%) (Auto)2018-01-16 22:43:00* Test Item Value Reference Range Interpretation Comments Monocytes (%) (Auto) (test code = 5905-5) 7.6 4.4-11.3 [facility] [place]anoEosinophils (%) (Auto)2018-01-16 22:43:00 * Test Item Value Reference Range Interpretation Comments Eosinophils (%) (Auto) (test code = 713-8) 1.5 0.0-6.0 [facility] [place]Basophils (%) (Auto)2018-01-16 22:43:00* Test Item Value Reference Range Interpretation Comments Basophils (%) (Auto) (test code = 706-2) 0.5 0.0-1.0 [facility] [place]anoIM GRANULOCYTES %2018-01-16 22:43:00* Test Item Value Reference Range Interpretation Comments IM GRANULOCYTES % (test code = IM GRANULOCYTES %) 0.3 0.0- 1.0 [facility]anoNeutrophils # (Auto)2018-01-16 22:43:00* Test Item Value Reference Range Interpretation Comments Neutrophils # (Auto) (test code = 751-8) 6.0 2.1-6.9 [facility]anoLymphocytes # (Auto)2018-01-16 22:43:00* Test Item Value Reference Range Interpretation Comments Lymphocytes # (Auto) (test code = 47714-4) 3.5 1.0-3.2 H [facility] [place]anoMonocytes # (Auto)2018-01-16 22:43:00* Test Item Value Reference Range Interpretation Comments Monocytes # (Auto) (test code = 742-7) 0.8 0.2-0.8 [facility] [place]Eosinophils # (Auto)2018-01-16 22:43:00* Test Item Value Reference Range Interpretation Comments Eosinophils # (Auto) (test code = 711-2) 0.2 0.0-0.4 [facility] [place]Basophils # (Auto)2018-01-16 22:43:00* Test Item Value Reference Range Interpretation Comments Basophils # (Auto) (test code = 704-7) 0.1 0.0-0.1 [facility] [place]anoAbsolute Immature Granulocyte (auto 2018-01-16 22:43:00* Test Item Value Reference Range Interpretation Comments Absolute Immature Granulocyte (auto (sandra t code = Absolute Immature Granulocyte (auto) 0.03 0-0.1 [facility] [place]anoWhite Blood Nahij3716-88-48 22:43:00* Test Item Value Reference Range Interpretation Comments White Blood Count (test code = 6690-2) 10.56 4.8-10.8 [facility] [place]anoRed Blood Izzeh3790-85-51 22:43:00* Test Item Value Reference Range Interpretation Comments Red Blood Count (test code = 789-8) 4.56 4.3-5.7 [facility] [place]anoHemoglobin2018-07-14 22:43:00* Test Item Value Reference Range Interpretation Comments Hemoglobin (test code = 80279-9) 13.6 14.0-18.0 L [facility] [place]anoHematocrit2018-07-14 22:43:00* Test Item Value Reference Range Interpretation Comments Hematocrit (test code = 4544-3) 38.4 38.2-49.6 [facility] [place]anoMean Corpuscular Xwtmsm0389-76-65 22:43:00* Test Item Value Reference Range Interpretation Comments Mean Corpuscular Volume (test code = 787-2) 84.2 81-99 [facility] [place]anoMean Corpuscular Tpwrlepdrh6771-52-30 22:43:00* Test Item Value Reference Range Interpretation Comments Mean Corpuscular Hemoglobin (test code = 785-6) 29.8 28-32 [facility] [place]anoMean Corpuscular Hemoglobin Concent 2018-01-16 22:43:00* Test Item Value Reference Range Interpretation Comments Mean Corpuscular Hemoglobin Concent (test code = 786-4) 35.4 31-35 H [facility] [place]anoRed Cell Distribution Bantd0348-71-33 22:43:00* Test Item Value Reference Range Interpretation Comments Red Cell Distribution Width (test code = 79367-4) 13.0 11.7 -14.4 [facility] [place]anoPlatelet Qyvng0239-01-59 22:43:00* Test Item Value Reference Range Interpretation Comments Platelet Count (test code = 777-3) 217 140-360 [facility] [place]anoNeutrophils (%) (Auto)2018-01-16 22:43:00 * Test Item Value Reference Range Interpretation Comments Neutrophils (%) (Auto) (test code = 86269-2) 56.8 38.7-80.0 [facility] [place]anoLymphocytes (%) (Auto)2018-01-16 22:43:00 * Test Item Value Reference Range Interpretation Comments Lymphocytes (%) (Auto) (test code = 736-9) 33.3 18.0-39.1 [facility] [place]anoMonocytes (%) (Auto)2018-01-16 22:43:00* Test Item Value Reference Range Interpretation Comments Monocytes (%) (Auto) (test code = 5905-5) 7.6 4.4-11.3 [facility] [place]anoEosinophils (%) (Auto)2018-01-16 22:43:00 * Test Item Value Reference Range Interpretation Comments Eosinophils (%) (Auto) (test code = 713-8) 1.5 0.0-6.0 [facility] [place]Basophils (%) (Auto)2018-01-16 22:43:00* Test Item Value Reference Range Interpretation Comments Basophils (%) (Auto) (test code = 706-2) 0.5 0.0-1.0 [facility] [place]anoIM GRANULOCYTES %2018-01-16 22:43:00* Test Item Value Reference Range Interpretation Comments IM GRANULOCYTES % (test code = IM GRANULOCYTES %) 0.3 0.0- 1.0 [facility] [place]anoNeutrophils # (Auto)2018-01-16 22:43:00* Test Item Value Reference Range Interpretation Comments Neutrophils # (Auto) (test code = 751-8) 6.0 2.1-6.9 [facility] [place]anoLymphocytes # (Auto)2018-01-16 22:43:00* Test Item Value Reference Range Interpretation Comments Lymphocytes # (Auto) (test code = 75376-3) 3.5 1.0-3.2 H [facility] [place]anoMonocytes # (Auto)2018-01-16 22:43:00* Test Item Value Reference Range Interpretation Comments Monocytes # (Auto) (test code = 742-7) 0.8 0.2-0.8 [facility] [place]anoEosinophils # (Auto)2018-01-16 22:43:00* Test Item Value Reference Range Interpretation Comments Eosinophils # (Auto) (test code = 711-2) 0.2 0.0-0.4 [facility] [place]anoBasophils # (Auto)2018-01-16 22:43:00* Test Item Value Reference Range Interpretation Comments Basophils # (Auto) (test code = 704-7) 0.1 0.0-0.1 [facility]anoAbsolute Immature Granulocyte (auto 2018-01-16 22:43:00* Test Item Value Reference Range Interpretation Comments Absolute Immature Granulocyte (auto (sandra t code = Absolute Immature Granulocyte (auto) 0.03 0-0.1 [facility]anoB-Type Natriuretic Mazyysf4344-45-98 16:27:00* Test Item Value Reference Range Interpretation Comments B-Type Natriuretic Peptide (test code = 63843-6) -10.0 0-100 [facility]anoB-Type Natriuretic Yojkdix1684-86-30 16:27:00* Test Item Value Reference Range Interpretation Comments B-Type Natriuretic Peptide (test code = 41724-6) -10.0 0-100 [facility]anoB-Type Natriuretic Tlqtboy4158-96-55 16:27:00* Test Item Value Reference Range Interpretation Comments B-Type Natriuretic Peptide (test code = 87930-5) -10.0 0-100 [facility]anoB-Type Natriuretic Oyeurmb9569-16-79 16:27:00* Test Item Value Reference Range Interpretation Comments B-Type Natriuretic Peptide (test code = 16549-3) -10.0 0-100 [facility] [place]anoCreatine Kinase [id number] 16:18:00* Test Item Value Reference Range Interpretation Comments Creatine Kinase MB (test code = 82312-4) 1.90 0.00-5.00 [facility]anoTroponin F0810-06-64 16:18:00* Test Item Value Reference Range Interpretation Comments Troponin I (test code = DPC2312) -0.001 0-0.300 [facility] Tlphm7714-74-56 16:11:00* Test Item Value Reference Range Interpretation Comments Sodium Level (test code = 2951-2) 140 136-145 [facility]anoPotassium Bcjaw8385-68-33 16:11:00* Test Item Value Reference Range Interpretation Comments Potassium Level (test code = 2823-3) 3.6 3.5-5.1 [facility]anoChloride Hhcfs5743-25-33 16:11:00* Test Item Value Reference Range Interpretation Comments Chloride Level (test code = 2075-0) 104 98-107 [facility] [place]anoCarbon Dioxide Qytgf5805-48-17 16:11:00* Test Item Value Reference Range Interpretation Comments Carbon Dioxide Level (test code = 2028-9) 24 22-29 [facility] PlanoAnion Kty2075-86-60 16:11:00* Test Item Value Reference Range Interpretation Comments Anion Gap (test code = 45657-7) 15.6 8-16 [facility]anoBlood Urea Zhgjzhjw6234-26-62 16:11:00* Test Item Value Reference Range Interpretation Comments Blood Urea Nitrogen (test code = 3094-0) 12 7-26 [facility]anoCreatinine2017-12-29 16:11:00* Test Item Value Reference Range Interpretation Comments Creatinine (test code = 2160-0) 0.84 0.72-1.25 [facility]anoBUN/Creatinine Ilwll2760-45-36 16:11:00* Test Item Value Reference Range Interpretation Comments BUN/Creatinine Ratio (test code = 3097-3) 14 12-28 [facility] PlanoEstimat Glomerular Filtration Rate 2017-07-03 16:11:00* Test Item Value Reference Range Interpretation Comments Estimat Glomerular Filtration Rate (test code = 86759-0) 60- >60 Ranges were taken from the National Kidney Disease Education Program and the [facility] literature.Reference ranges:60 or greater: Xpjzei47-26 ( for 3 consecutive months): Chronic kidney disease 15 or less: Kidney failureBaylor Scott & White [facility] – PlanoGlucose Nruwp1939-73-32 16:11:00* Test Item Value Reference Range Interpretation Comments Glucose Level (test code = XMD7827) 152 74-118 H [facility] PlanoCalcium Wdlps8412-81-81 16:11:00* Test Item Value Reference Range Interpretation Comments Calcium Level (test code = 76918-0) 9.1 8.4-10.2 [facility] PlanoTotal Yhoyaqwwj2475-14-75 16:11:00* Test Item Value Reference Range Interpretation Comments Total Bilirubin (test code = 1975-2) 0.4 0.2-1.2 [facility] PlanoAspartate Amino Transf (AST/SGOT) 2017-07-03 16:11:00* Test Item Value Reference Range Interpretation Comments Aspartate Amino Transf (AST/SGOT) (test code = Aspartate Amino Transf (AST/SGOT)) 22 5-34 [facility] PlanoAlanine Aminotransferase (ALT/SGPT) 2017-07-03 16:11:00* Test Item Value Reference Range Interpretation Comments Alanine Aminotransferase (ALT/SGPT) (test code = 1742-6) 44 0-55 [facility] PlanoTotal Aynvnjh2003-04-26 16:11:00* Test Item Value Reference Range Interpretation Comments Total Protein (test code = 2885-2) 7.3 6.5-8.1 [facility] PlanoAlbumin2017-12-29 16:11:00* Test Item Value Reference Range Interpretation Comments Albumin (test code = 1751-7) 3.9 3.5-5.0 [facility] PlanoGlobulin2017-12-29 16:11:00* Test Item Value Reference Range Interpretation Comments Globulin (test code = 07604-0) 3.4 2.3-3.5 [facility] PlanoAlbumin/Globulin Wjvdg7521-50-62 16:11:00 * Test Item Value Reference Range Interpretation Comments Albumin/Globulin Ratio (test code = 1759-0) 1.1 0.8-2.0 [facility] PlanoAlkaline Dtykqvnxdad1368-31-47 16:11:00* Test Item Value Reference Range Interpretation Comments Alkaline Phosphatase (test code = 6768-6) 95 40-150 [facility] PlanoCreatine Tbxnbg9963-06-21 16:11:00* Test Item Value Reference Range Interpretation Comments Creatine Kinase (test code = 2157-6) 203 30-200 H [facility] PlanoProthrombin Nlnx5871-50-57 16:05:00* Test Item Value Reference Range Interpretation Comments Prothrombin Time (test code = 5902-2) 12.7 11.9-14.5 [facility] PlanoProthromb Time International Ratio 2017-07-03 16:05:00* Test Item Value Reference Range Interpretation Comments Prothromb Time International Ratio (test code = 6301-6) 0.91 Oral Anticoagulant Therapy INR Values:1. Low Intensity Therapy 1.5 - 2.02 . Moderate Intensity Therapy 2.0 - 3.03. High Intensity Therapy(1) 2.5 - 3. 54. High Intensity Therapy(2) 3.0 - 4.05. Panic Value INR > 5.0 [facility] PlanoActivated Partial Thromboplast Time 2017-07-03 16:05:00* Test Item Value Reference Range Interpretation Comments Activated Partial Thromboplast Time (test code = 21804-9) 28.6 23.8-35.5 [facility]anoWhite Blood Xnfqc3120-42-98 15:59:00* Test Item Value Reference Range Interpretation Comments White Blood Count (test code = 6690-2) 7.70 4.8-10.8 [facility] PlanoRed Blood Pjjil5211-21-31 15:59:00* Test Item Value Reference Range Interpretation Comments Red Blood Count (test code = 789-8) 4.86 4.3-5.7 [facility]anoHemoglobin2017-12-29 15:59:00* Test Item Value Reference Range Interpretation Comments Hemoglobin (test code = 88535-1) 14.3 14.0-18.0 [facility]anoHematocrit2017-12-29 15:59:00* Test Item Value Reference Range Interpretation Comments Hematocrit (test code = 4544-3) 40.9 38.2-49.6 [facility]anoMean Corpuscular Jeldlu3279-55-58 15:59:00* Test Item Value Reference Range Interpretation Comments Mean Corpuscular Volume (test code = 787-2) 84.2 81-99 [facility]anoMean Corpuscular Kbtgmmnswk0694-94-58 15:59:00* Test Item Value Reference Range Interpretation Comments Mean Corpuscular Hemoglobin (test code = 785-6) 29.4 28-32 [facility]anoMean Corpuscular Hemoglobin Concent 2017-07-03 15:59:00* Test Item Value Reference Range Interpretation Comments Mean Corpuscular Hemoglobin Concent (test code = 786-4) 35.0 31-35 [facility] [place]anoRed Cell Distribution Yyouk4759-09-20 15:59:00* Test Item Value Reference Range Interpretation Comments Red Cell Distribution Width (test code = 28909-3) 12.8 11.7 -14.4 [facility] PlanoPlatelet Xqzej9701-31-89 15:59:00* Test Item Value Reference Range Interpretation Comments Platelet Count (test code = 777-3) 212 140-360 [facility]anoNeutrophils (%) (Auto)2017-07-03 15:59:00 * Test Item Value Reference Range Interpretation Comments Neutrophils (%) (Auto) (test code = 33709-2) 53.1 38.7-80.0 [facility]anoLymphocytes (%) (Auto)2017-07-03 15:59:00 * Test Item Value Reference Range Interpretation Comments Lymphocytes (%) (Auto) (test code = 736-9) 39.2 18.0-39.1 H [facility]anoMonocytes (%) (Auto)2017-07-03 15:59:00* Test Item Value Reference Range Interpretation Comments Monocytes (%) (Auto) (test code = 5905-5) 4.9 4.4-11.3 [facility]anoEosinophils (%) (Auto)2017-07-03 15:59:00 * Test Item Value Reference Range Interpretation Comments Eosinophils (%) (Auto) (test code = 713-8) 1.7 0.0-6.0 [facility]anoBasophils (%) (Auto)2017-07-03 15:59:00* Test Item Value Reference Range Interpretation Comments Basophils (%) (Auto) (test code = 706-2) 0.5 0.0-1.0 [facility]anoIM GRANULOCYTES %2017-07-03 15:59:00* Test Item Value Reference Range Interpretation Comments IM GRANULOCYTES % (test code = IM GRANULOCYTES %) 0.6 0.0- 1.0 [facility]anoNeutrophils # (Auto)2017-07-03 15:59:00* Test Item Value Reference Range Interpretation Comments Neutrophils # (Auto) (test code = 751-8) 4.1 2.1-6.9 [facility]anoLymphocytes # (Auto)2017-07-03 15:59:00* Test Item Value Reference Range Interpretation Comments Lymphocytes # (Auto) (test code = 44512-7) 3.0 1.0-3.2 [facility]anoMonocytes # (Auto)2017-07-03 15:59:00* Test Item Value Reference Range Interpretation Comments Monocytes # (Auto) (test code = 742-7) 0.4 0.2-0.8 [facility]anoEosinophils # (Auto)2017-07-03 15:59:00* Test Item Value Reference Range Interpretation Comments Eosinophils # (Auto) (test code = 711-2) 0.1 0.0-0.4 [facility]anoBasophils # (Auto)2017-07-03 15:59:00* Test Item Value Reference Range Interpretation Comments Basophils # (Auto) (test code = 704-7) 0.0 0.0-0.1 [facility] PlanoAbsolute Immature Granulocyte (auto 2017-07-03 15:59:00* Test Item Value Reference Range Interpretation Comments Absolute Immature Granulocyte (auto (sandra t code = Absolute Immature Granulocyte (auto) 0.05 0-0.1 [facility]anoCHEST SINGLE ([facility]ABLE) [place] [address] Patient Name: FLORIN GUERRERO MR #: [id number] : 1980 Age/Sex: 36/M Req #: [id number] Adm Physician: Ordered by: WINDY AVERY MD Report #: [id number] Location: ER Room/Bed: Procedure: [id number] DX/CHEST SINGLE (PORTABLE) Exam Date: 07/03/17 Exam Time: 1635 REPORT STATUS: S igned PROCEDURE: CHEST SINGLE (PORTABLE) COMPARISON: None. INDICATIONS: c hest pain x 3 days FINDINGS: Portable frontal image obtained at 1419 hrs. LUNGS: No evidence of mass or infiltrate. Pulmonary vascular chidi ngs are normal PLEURA: No effusions or pneumothorax. HEART T MEDIASTINUM: The cardiomediastinal silhouette is normal. No hilar lymphadeno sena. BONES T SOFT TISSUES: No focal osseous lesions. Soft tissues ar e unremarkable. CONCLUSION: No acute cardiopulmonary process. Dictated by: Darren Blount M.D. on 07/03/2017 at 16:56 Electr onically approved by: Darren Blount M.D. on 07/03/2017 at 16:56 Dictated By: DARREN BLOUNT MD 55 Transcribed By: MAREK on 07/03/171655 COPY TO: WINDY AVERY MD
== END 2020-04-23 22:07 | disposition home or self-care (01) ==
LOC: FSED 21:02
DX: R07.89 Other chest pain (principal); K21.00 Gastro-esophageal reflux disease with esophagitis, without bleeding; R94.31 Abnormal electrocardiogram [ECG] [EKG]; I10 Essential (primary) hypertension; F41.9 Anxiety disorder, unspecified
CPT/HCPCS: 71046; 80053; 82553; 84484; 85025; 99284; J2405

== ENCOUNTER 2020-12-29 22:42 | Emergency (ER) | payer SELFPAY ==
[~2020-12-29] VITALS: Ht 175.3 cm; Wt 97.5 kg
[~2020-12-29 22:42] MED LIST changes: +ACETAMINOPHEN500 MG PO; +IBUPROFEN IB200 MG PO; +OMEPRAZOLE40 MG PO
[2020-12-29] MEDS ORDERED: DIPHTH/TETANUS/ACEL. PERTUSSIS 0.5 ML SYR IM ONE (23:00)
[2020-12-29] MEDS ORDERED: LIDOCAINE HCL 1% LOCAL INJ 20 ML VIAL ONE (23:01)
[2020-12-29] MEDS ORDERED: IBUPROFEN 400 MG TAB ONE (23:43)
[2020-12-29] MEDS ORDERED: TETANUS/DIPHTHERIA TOX ADULT 0.5 ML SYR ONE (23:43)
[2020-12-30] MEDS ORDERED: IBUPROFEN800 MG PO (00:48)
[2020-12-30] MEDS ORDERED: CEPHALEXIN500 MG PO (00:49)
== END 2020-12-30 01:00 | disposition home or self-care (01) ==
LOC: FSED 23:00
DX: S61.411A Laceration without foreign body of right hand, initial encounter (principal); W26.0XXA Contact with knife, initial encounter; Y92.008 Other place in unspecified non-institutional (private) residence as the place of occurrence of the external cause; I10 Essential (primary) hypertension; F41.9 Anxiety disorder, unspecified; K21.9 Gastro-esophageal reflux disease without esophagitis
CPT/HCPCS: 12002; 73130; 90471; 90714; 99284; J2001

== ENCOUNTER 2021-03-06 18:27 | Emergency (ER) | payer SELFPAY ==
[~2021-03-06] VITALS: Ht 170.2 cm; Wt 97.5 kg
[~2021-03-06 18:27] MED LIST changes: +CEPHALEXIN500 MG PO; +IBUPROFEN800 MG PO
[2021-03-06] MEDS ORDERED: DONNATAL/LIDOCAINE/MAALOX 30 ML SUSP PO ONE (18:45)
[2021-03-06 18:50] LABS: BASOPHILS % 0.4 % (0.0-1.0); EOSINOPHILS # (AUTO) 0.2 (0.0-0.4); HEMATOCRIT 41.6 % (38.2-49.6); HEMOGLOBIN 14.3 g/dL (14.0-18.0); LYMPHOCYTES % 37.5 % (18.0-39.1); MEAN CORPUSCULAR HEMOGLOBIN 29.5 pg (28-32); MEAN CORPUSCULAR HGB CONC 34.4 g/dL (31-35); MONOCYTES # (AUTO) 0.5 (0.2-0.8); MONOCYTES % 6.5 % (4.4-11.3); NEUTROPHILS # (AUTO) 4.3 (2.1-6.9); NEUTROPHILS % 53.4 % (38.7-80.0); PLATELET COUNT 226 x10e3/uL (140-360); RED BLOOD COUNT 4.84 x10e6/uL (4.3-5.7); RED CELL DISTRIBUTION WIDTH 12.4 % (11.7-14.4)
[2021-03-06 19:05] LABS: ANION GAP 15.5 mmol/L (8-16); CALCIUM 8.8 mg/dL (8.4-10.2); CREATININE, SERUM 0.77 mg/dL (0.72-1.25); POTASSIUM 3.5 mmol/L (3.5-5.1)
[2021-03-06 19:29] LABS: ALBUMIN 4.1 g/dL (3.5-5.0); BILIRUBIN,DIRECT 0.2 mg/dL (0.0-0.5)
[2021-03-06] MEDS ORDERED: LIDOCAINE VISC 2% SOLN 15 ML UDC ONE (20:30)
[2021-03-06] MEDS ORDERED: BELLADONNA ALK/PHENOBARBITAL 5 ML UDC ONE (20:30)
[2021-03-06] MEDS ORDERED: MAGNESIUM/ALUMINUM/SIMETHICONE 30 ML UDC ONE (20:30)
== END 2021-03-06 20:56 | disposition home or self-care (01) ==
LOC: ER 18:36
DX: R07.89 Other chest pain (principal); I10 Essential (primary) hypertension; F41.9 Anxiety disorder, unspecified; K21.9 Gastro-esophageal reflux disease without esophagitis
CPT/HCPCS: 36415; 71045; 80048; 80076; 83690; 84484; 85025; 99284

== ENCOUNTER 2021-04-09 21:31 | Emergency (ER) | payer SELFPAY ==
[~2021-04-09] VITALS: Ht 170.2 cm; Wt 97.5 kg
[2021-04-09] MEDS ORDERED: SODIUM CHLORIDE 0.9% 50ML 50 ML ONE (23:20)
[2021-04-09] MEDS ORDERED: IOPAMIDOL 370 MG/ML 200 ML INFUS..BTL INJ ONE (23:20)
[2021-04-09] MEDS ORDERED: ACETAMINOPHEN 325 MG TAB ONE (23:59)
[2021-04-10] MEDS ORDERED: PANTOPRAZOLE SO40 MG PO (00:20)
[2021-04-10] MEDS ORDERED: FAMOTIDINE40 MG PO (00:22)
== END 2021-04-10 01:15 | disposition home or self-care (01) ==
LOC: FSED 21:55
DX: D17.0 Benign lipomatous neoplasm of skin and subcutaneous tissue of head, face and neck (principal); E04.1 Nontoxic single thyroid nodule; K21.00 Gastro-esophageal reflux disease with esophagitis, without bleeding; F10.10 Alcohol abuse, uncomplicated; I10 Essential (primary) hypertension; F41.9 Anxiety disorder, unspecified
CPT/HCPCS: 70491; 80053; 81003; 85025; 99284; Q9967

== ENCOUNTER 2022-03-13 08:06 | Emergency (ER) | payer OTHER ==
[~2022-03-13] VITALS: Ht 170.2 cm; Wt 97.5 kg
[~2022-03-13 08:06] MED LIST changes: +FAMOTIDINE40 MG PO; +PANTOPRAZOLE SO40 MG PO; +SODIUM CHLORIDE FLUSH 10 ML SYR IV PRN
[2022-03-13] MEDS ORDERED: FAMOTIDINE 20 MG/2 ML VIAL IV STA (08:28)
[2022-03-13] MEDS ORDERED: ASPIRIN 325 MG TAB PO ONE (08:30)
[2022-03-13] MEDS ORDERED: SODIUM CHLORIDE 0.9% 1000ML 1,000 ML IV ONE (08:30)
[2022-03-13 08:40] LABS: BASOPHILS % 0.5 % (0.0-1.0); EOSINOPHILS # (AUTO) 0.1 (0.0-0.4); HEMATOCRIT 45.3 % (38.2-49.6); LYMPHOCYTES # (AUTO) 2.7 (1.0-3.2); LYMPHOCYTES % 42.2 % (18.0-39.1); MEAN CORPUSCULAR HEMOGLOBIN 29.4 pg (28-32); MEAN CORPUSCULAR HGB CONC 33.1 g/dL (31-35); MEAN CORPUSCULAR VOLUME 88.8 fL (81-99); MONOCYTES # (AUTO) 0.6 (0.2-0.8); MONOCYTES % 8.5 % (4.4-11.3); NEUTROPHILS % 46.3 % (38.7-80.0); PLATELET COUNT 237 x10e3/uL (140-360)
[2022-03-13 08:51] LABS: INR 0.91; PROTHROMBIN TIME 13.1 seconds (11.9-14.5)
[2022-03-13 08:52] LABS: PARTIAL THROMBOPLASTIN TIME 29.2 seconds (23.8-35.5)
[2022-03-13 09:00] LABS: ALANINE AMINOTRANSFERASE 64 IU/L (0-55); ALBUMIN 4.1 g/dL (3.5-5.0); ALBUMIN/GLOBULIN RATIO 1.2 (0.8-2.0); ALKALINE PHOSPHATASE 80 IU/L (40-150); ANION GAP 15.8 mmol/L (8-16); BLOOD UREA NITROGEN 13 mg/dL (7-26); BUN/CREATININE RATIO 17 (6-25); CALCIUM 9.3 mg/dL (8.4-10.2); CARBON DIOXIDE 22 mmol/L (22-29); CHLORIDE 104 mmol/L (98-107); CREATININE, SERUM 0.76 mg/dL (0.72-1.25); GLUCOSE 106 mg/dL (74-118); LIPASE 18 U/L (8-78); POTASSIUM 3.8 mmol/L (3.5-5.1); SODIUM 138 mmol/L (136-145)
[2022-03-13 09:48] LABS: CLARITY,URINE CLEAR (CLEAR); COLOR,URINE YELLOW (YELLOW)
[2022-03-13 09:49] LABS: AMPHETAMINES SCREEN,URINE NEGATIVE (NEGATIVE); KETONES,URINE NEGATIVE (NEGATIVE); LEUKOCYTE ESTERASE ,URINE NEGATIVE (NEGATIVE); NITRITE,URINE NEGATIVE (NEGATIVE); PHENCYCLIDINE SCREEN,URINE NEGATIVE (NEGATIVE); PROTEIN,URINE DIPSTICK NEGATIVE (NEGATIVE)
[2022-03-13 09:50] LABS: BENZODIAZEPINES SCREEN,URINE NEGATIVE (NEGATIVE); URINE UROBILINOGEN 0.2 mg/dL (0.2 - 1)
[2022-03-13 09:55] LABS: BACTERIA,URINE MODERATE /HPF; EPITHELIAL CELLS,URINE FEW /LPF; MUCUS,URINE MODERATE (RARE); WBC,URINE (MAN) 0-5 /HPF (0-5)
[2022-03-13] MEDS ORDERED: COLACE100 M1 PO (10:25)
[2022-03-13] MEDS ORDERED: MIRALAX17 GM PO (10:25)
[2022-03-13] MEDS ORDERED: PEPCID20 MG PO (10:25)
[2022-03-13 10:46] VITALS: BP 133/99
== END 2022-03-13 10:49 | disposition home or self-care (01) ==
LOC: ER 08:11
DX: R07.9 Chest pain, unspecified (principal); K59.00 Constipation, unspecified; K21.9 Gastro-esophageal reflux disease without esophagitis; I10 Essential (primary) hypertension; F41.9 Anxiety disorder, unspecified
CPT/HCPCS: 36415; 74022; 76705; 80053; 80307; 81001; 83690; 84484; 85025; 85610; 85730; 93005; 99284; J7030

== ENCOUNTER 2022-05-15 23:59 | Emergency (ER) | payer OTHER ==
[~2022-05-15] VITALS: Ht 172.7 cm; Wt 98.4 kg
[~2022-05-15 23:59] MED LIST changes: +COLACE100 M1 PO; +MIRALAX17 GM PO; +PEPCID20 MG PO; -SODIUM CHLORIDE FLUSH 10 ML SYR IV PRN
[2022-05-16] MEDS ORDERED: DONNATAL/LIDOCAINE/MAALOX 30 ML SUSP PO STA (00:37)
[2022-05-16 00:39] LABS: BASOPHILS % 0.3 % (0.0-1.0); EOSINOPHILS # (AUTO) 0.1 (0.0-0.4); EOSINOPHILS % 1.3 % (0.0-6.0); HEMATOCRIT 42.8 % (38.2-49.6); HEMOGLOBIN 14.1 g/dL (14.0-18.0); LYMPHOCYTES # (AUTO) 2.6 (1.0-3.2); LYMPHOCYTES % 33.8 % (18.0-39.1); MEAN CORPUSCULAR HEMOGLOBIN 29.6 pg (28-32); MEAN CORPUSCULAR HGB CONC 32.9 g/dL (31-35); MEAN CORPUSCULAR VOLUME 89.9 fL (81-99); MONOCYTES # (AUTO) 0.6 (0.2-0.8); MONOCYTES % 7.5 % (4.4-11.3); NEUTROPHILS # (AUTO) 4.4 (2.1-6.9); NEUTROPHILS % 56.7 % (38.7-80.0); PLATELET COUNT 217 x10e3/uL (140-360); RED BLOOD COUNT 4.76 x10e6/uL (4.3-5.7); RED CELL DISTRIBUTION WIDTH 12.7 % (11.7-14.4)
[2022-05-16] MEDS ORDERED: DICYCLOMINE HCL 20 MG/2 ML VIAL IM ONE (00:45)
[2022-05-16 00:58] LABS: ALBUMIN 3.9 g/dL (3.5-5.0); ALBUMIN/GLOBULIN RATIO 1.3 (0.8-2.0); ANION GAP 15.6 mmol/L (8-16); CALCIUM 9.2 mg/dL (8.4-10.2); CREATININE, SERUM 0.82 mg/dL (0.72-1.25); POTASSIUM 3.6 mmol/L (3.5-5.1)
[2022-05-16] MEDS ORDERED: IOPAMIDOL 370 MG/ML 100 ML INFUS..BTL INJ ONE (01:23)
[2022-05-16] MEDS ORDERED: BELLADONNA ALK/PHENOBARBITAL 5 ML UDC ONE (01:29)
[2022-05-16] MEDS ORDERED: LIDOCAINE VISC 2% SOLN 15 ML UDC ONE (01:29)
[2022-05-16] MEDS ORDERED: MAGNESIUM/ALUMINUM/SIMETHICONE 30 ML UDC ONE (01:29)
[2022-05-16] MEDS ORDERED: OMEPRAZOLE40 MG PO (02:39)
[2022-05-16 02:56] VITALS: BP 147/95
== END 2022-05-16 02:54 | disposition home or self-care (01) ==
LOC: ER 05-16 00:11
DX: R14.0 Abdominal distension (gaseous) (principal); F10.10 Alcohol abuse, uncomplicated; K21.00 Gastro-esophageal reflux disease with esophagitis, without bleeding
CPT/HCPCS: 36415; 71045; 74177; 80053; 83690; 84484; 85025; 93005; 99284; C9113; J0500; Q9967

== ENCOUNTER 2022-10-13 20:30 | Emergency (ER) | payer BC, OTHER ==
[~2022-10-13] VITALS: Ht 172.7 cm; Wt 98.4 kg
[~2022-10-13 20:30] MED LIST changes: +DICYCLOMINE HCL20 MG PO; +METHOCARBAMOL500 MG PO
[2022-10-13] MEDS ORDERED: FAMOTIDINE 20 MG/2 ML VIAL IV STA (20:48)
[2022-10-13] MEDS ORDERED: LORAZEPAM INJ 2 MG/ML VIAL ONE (20:57)
[2022-10-13] MEDS ORDERED: MAGNESIUM/ALUMINUM/SIMETHICONE 30 ML UDC ONE (20:57)
[2022-10-13] MEDS ORDERED: FAMOTIDINE 20 MG/2 ML VIAL IV ONE (20:57)
[2022-10-13] MEDS ORDERED: SODIUM CHLORIDE 0.9% 1000ML 1,000 ML ONE (20:57)
[2022-10-13] MEDS ORDERED: LORAZEPAM INJ 2 MG/ML VIAL IV ONE (21:00)
[2022-10-13] MEDS ORDERED: MAGNESIUM/ALUMINUM/SIMETHICONE 30 ML UDC PO ONE (21:00)
[2022-10-13] MEDS ORDERED: SODIUM CHLORIDE 0.9% 1000ML 1,000 ML IV ONE (21:15)
[2022-10-13] MEDS ORDERED: FAMOTIDINE20 MG PO (21:58)
[2022-10-13] MEDS ORDERED: VISTARIL50 MG PO (21:59)
[2022-10-13 22:20] VITALS: BP 144/98
== END 2022-10-13 22:20 | disposition home or self-care (01) ==
LOC: FSED 20:36
DX: R07.9 Chest pain, unspecified (principal); R00.2 Palpitations; K29.70 Gastritis, unspecified, without bleeding; R94.31 Abnormal electrocardiogram [ECG] [EKG]
CPT/HCPCS: 71045; 80053; 80307; 81003; 84484; 85025; 93005; 96374; 96376; 99284; J2060; J7030

== ENCOUNTER 2024-03-21 05:06 | Emergency (ER) | payer SELFPAY ==
[~2024-03-21] VITALS: Ht 172.7 cm; Wt 95.3 kg
[~2024-03-21 05:06] MED LIST changes: +FAMOTIDINE20 MG PO; +VISTARIL50 MG PO
[2024-03-21] MEDS ORDERED: SODIUM CHLORIDE 0.9% 500ML 500 ML IV STA (05:22)
[2024-03-21 05:28] VITALS: TEMP 99.6
[2024-03-21] MEDS: FAMOTIDINE 20 MG/2 ML VIAL IV ONE (05:45)
[2024-03-21] MEDS: LACTATED RINGER'S 1,000 ML IV ONE (05:45)
[2024-03-21] MEDS: LORAZEPAM INJ 2 MG/ML VIAL IV ONE (05:45)
[2024-03-21] MEDS: ONDANSETRON HCL INJ 2MG/ML 2ML 2 MG/ML VIAL IV ONE (05:45)
[2024-03-21] MEDS: CLONIDINE HCL 0.1 MG TAB PO ONE (06:27)
[2024-03-21 07:00] VITALS: BP 177/107; PULSE 106; RESP 18; O2SAT 99
[2024-03-21 07:05] VITALS: PULSE 106; RESP 18; O2SAT 99
== END 2024-03-21 07:05 | disposition home or self-care (01) ==
LOC: FSED 05:23
DX: R00.0 Tachycardia, unspecified (principal); R07.9 Chest pain, unspecified; F14.10 Cocaine abuse, uncomplicated; F41.9 Anxiety disorder, unspecified; R94.31 Abnormal electrocardiogram [ECG] [EKG]; F17.210 Nicotine dependence, cigarettes, uncomplicated
CPT/HCPCS: 71045; 80053; 80307; 81003; 82553; 83880; 84484; 85025; 85379; 93005; 99284; J2060; J2405; J7121